=== PATIENT | female | born 1950 | race Caucasian/White ===

== ENCOUNTER 2019-04-09 06:10 | Day surgery (SDC) | payer MEDICARE, OTHER ==
[~2019-04-09] VITALS: Ht 152.4 cm; Wt 94.1 kg
[2019-04-09] VITALS (17 sets, daily range): BP systolic 87–125; BP diastolic 42–101; PULSE 79–94; RESP 13–23; Ht 152.4 cm; Wt 94.1 kg
[2019-04-09] MEDS ORDERED: CEFAZOLIN 2 GM/50 ML (PMX) 50 ML IVPB ONE (06:30)
[2019-04-09] MEDS ORDERED: BUPIVACAINE 0.5% (SDV) 30 ML INJ ONE (06:54)
[2019-04-09] MEDS ORDERED: POLYMYXIN/BACITRACIN 1L IRRIG ONE (06:54)
[2019-04-09] MEDS ORDERED: ASPI81TA52 PO (06:58)
[2019-04-09] MEDS ORDERED: ENAL10TA PO (06:58)
[2019-04-09] MEDS ORDERED: ATOR10TA65 PO (06:58)
[2019-04-09] MEDS ORDERED: ALBU18HF INHALATION (06:59)
[2019-04-09] MEDS ORDERED: DICL100G37 TOP (06:59)
[2019-04-09] MEDS ORDERED: CYCL1DRO BOTH EYES (07:00)
[2019-04-09] MEDS ORDERED: DEXL30CA2 PO (07:00)
--- NOTE | 2019-04-09 07:40 | PREAC ---
Date/Time of Note Date/Time of Note DATE: 04/09/19 TIME: 07:39 Anesthesia Eval and Record Evaluation Time Pre-Procedure Interview DATE: 04/09/19 TIME: 07:39 Age 69 Sex female NPO: 8 hrs Preoperative diagnosis left foot bunion and hammer toe Planned procedure surgical correction of bunion and hammer toe Past Medical History Past Medical History: Includes Cardio: HTN, Dyslipidemia Surgery & Anesthesia Issues No known issue Meds Anticoagulation: No Beta Emma within 24 hr: No Reason Beta Emma not given: Pt. not on B-Emma Reported Medications Dexlansoprazole (Dexilant) 30 Mg Adryan., 30 MG PO DAILY, #30 CAP 04/09/19 Cyclosporine (RESTASIS) 1 Each Droperette, 1 DROP BOTH EYES Q12, #1 BOX 04/09/19 Albuterol Sulfate* (Ventolin HFA*) 18 Gm Hfa.aer.ad, 2 PUFF INHALATION Q4H, #1 INHALER 04/09/19 Diclofenac Sodium* (Voltaren* Gel) 1% -100 Gm Gel, 2 GM TOP QID, #1 TUB 04/09/19 Enalapril Maleate* (Enalapril Maleate*) 10 Mg Tablet, 10 MG PO DAILY, TAB 04/09/19 Atorvastatin Calcium (Atorvastatin Calcium) 10 Mg Tablet, 10 MG PO QHS, #30 TAB 04/09/19 Aspirin (Low Dose Aspirin) 81 Mg Tablet., 81 MG PO DAILY, #30 TAB 04/09/19 Meds reviewed: Yes Allergies Coded Allergies: No Known Allergy (Unverified , 04/09/19) Allergies Reviewed: Yes Labs/Studies Labs Reviewed: Reviewed by anesthesiologist test: N/A Pre-procedure Exam Last vitals Vital Signs Date Temp Pulse Resp B/P (MAP) Pulse Ox O2 O2 Flow FiO2 Time Delivery Rate 04/09/19 97.9 79 18 100/63 95 Room Air 07:00 (75) Airway: Adequate mouth opening, Adequate thyromental dist Mallampati: Mallampati IV Teeth: Normal Lung: Normal Heart: Normal ASA Physical Status ASA physical status: 2 Emergency: None Pre-operative Attestations Prior to commencing anesthesia and surgery, the patient was re-evaluated, there was verification of: *The patient's identity *The results of appropriate recent lab work and preoperative vital signs *The above evaluation not changing prior to induction *Anesthetic plan, risk benefits, alternative and complications discussed with patient/family; questions answered; patient/family understands, accepts and wishes to proceed. JANICE UMANZOR DO Apr 09, 2019 07:40
[2019-04-09] MEDS ORDERED: MIDAZOLAM 1 MG/ML 2 ML INJ ONE (07:53)
[2019-04-09] MEDS ORDERED: LIDOCAINE 2% (SDV) 5 ML INJ ONE (07:53)
[2019-04-09] MEDS ORDERED: PROPOFOL 20 ML ONE (07:53)
[2019-04-09] MEDS ORDERED: FENTAnyl 50 MCG/ML VIAL ONE (07:53)
[2019-04-09] MEDS ORDERED: ROPIVACAINE 0.5 % 30 ML VIAL ONE (07:53)
[2019-04-09] MEDS ORDERED: KETAMINE (50 MG/ML) 10 ML VIAL ONE (07:57)
[2019-04-09] MEDS ORDERED: OXYCODONE/ACETAMINOPHEN (5/325) TAB PO PRN ×2 (08:00)
[2019-04-09] MEDS ORDERED: LABETALOL HCL 20MG INJ IV PRN (08:00)
[2019-04-09] MEDS ORDERED: HYDROmorphONE 1 MG/5 ML IV SYRINGE IV PRN ×3 (08:00)
[2019-04-09] MEDS ORDERED: hydrALAzine 20 MG INJ IV PRN (08:00)
[2019-04-09] MEDS ORDERED: DESFLURANE 15 MIN ONE (08:00)
--- NOTE | 2019-04-09 08:09 | HPN ---
Date/Time of Note Date/Time of Note DATE: 04/09/19 TIME: 08:09 Interval H&P Admission Note Pt. seen H&P reviewed: No system changes BRENT CEE DPM Apr 09, 2019 08:09
[2019-04-09] MEDS ORDERED: ONDANSETRON 4 MG INJ ONE (08:31)
[2019-04-09] MEDS ORDERED: CEFAZOLIN 1 GM INJ ONE (08:31)
[2019-04-09] MEDS ORDERED: DEXAMETHASONE 4 MG/ML 5 ML INJ ONE (08:31)
--- NOTE | 2019-04-09 10:18 | SIPON ---
Date/Time of Note Date/Time of Note DATE: 04/09/19 TIME: 10:16 Operative Report Preoperative Diagnosis Left foot severe bunion deformity Left third severe hammertoe deformity Morbid obesity Left foot pain Postoperative Diagnosis Left foot severe bunion deformity Left third severe hammertoe deformity Morbid obesity Left foot pain Operation/Procedure Performed Left foot bunionectomy Left third hammertoe deformity Surgeon see signature line butcher's assistant None Anesthesia: general Estimated blood loss: minimal Transfusion Required none Specimen Bone and joint capsule left foot Grafts/Implants none Complications none BRENT CEE DPM Apr 09, 2019 10:18
--- NOTE | 2019-04-09 10:20 | OPR ---
Date/Time of Note Date/Time of Note DATE: 04/09/19 TIME: 10:18 Operative Report Procedure Date: Apr 09, 2019 Preoperative Diagnosis Left foot severe bunion deformity Left third severe hammertoe deformity Morbid obesity Left foot pain Postoperative Diagnosis Left foot severe bunion deformity Left third severe hammertoe deformity Morbid obesity Left foot pain Operation/Procedure Performed Left foot bunionectomy Left third hammertoe correction Left third metatarsal osteotomy Surgeon see signature line It Security Analyst None Anesthesia Type: general Estimated Blood Loss: minimal Transfusion none Specimen Bone and joint capsule left foot Grafts/Implants none Tubes/Drains None Complications none Pt Condition Post Procedure: stable Disposition: PACU Indications This is a pleasant 69-year-old female patient has been suffering with left foot forefoot pain for many years, exacerbated for the past few months especially with shoes and with activities. Patient complains of hallux abductovalgus deformity and painful hammertoe on the left third toe. Patient has failed to get pain relief with shoe modification and activity modification. She seeks surgical management. Risks and complications of this type surgery was discussed with patient in great detail. The risks and complications discussed, include but are not limited to, postoperative infection, postoperative pain, postoperative disability, chronic disability and pain, failure of surgery to correct the problem, need for use of internal and external fixation devices, and possible hardware failure, need for hardware removal, need for additional surgical procedures, deep venous thrombosis, limb loss, and loss of life. The patient acknowledges understanding of the discussion and agrees to the procedure. An informed consent was obtained, signed and placed in the chart. No guarantee or warranty was given or implied as to the outcome of the procedure either and verbal or written form. Procedure Description The patient was seen and examined in the preoperative area. Operative any was given to patient asked questions and all questions were answered. An informed consent was obtained, signed and placed in the chart. The patient was then taken to the operating room and was placed on the operating table in the supine position. Patient was placed under general anesthesia by the anesthesiologist. A pneumatic ankle was placed around the left ankle. The left foot was then scrubbed, prepped and draped in the usual aseptic manner. An Esmarch bandage was utilized to exsanguinate the left foot and the tourniquet was inflated to 250 mmHg pressure. Attention was directed to the first metatarsal phalangeal joint. Procedure: Bunionectomy left foot Skin marker was used to parth the incision over the dorsal medial aspect of the first MPJ medial peril to the extensor hallucis longus tendon. A #10 blade was used to make this incision. Incision was deepened through the subcutaneous layer with care being taken to identify and protect vital rasp structures. Bleeders were cauterized as necessary. Dissection continued deep to the joint capsule. [place] capsulotomy was performed and the first metatarsal phalangeal joint was dissected and exposed. Large bony prominence was found on the dorsal medial aspect of the first met are phalangeal joint. A power saw was used to cut the medial shelf of bone. The patient Brown type osteotomy was made at the head of the first metatarsal with a long arm dorsally in a short arm plantarly. A fragment was translated laterally to the desired position and temporarily fixated using a 0.045 K wire. A [place] 3.0 cannulated headless screw was inserted for permanent fixation. Remaining medial shelf of bone was cut using a power saw. Rasp was used for smoothing out all rough edges. Procedure: Third toe hammertoe correction Attention was next directed to the dorsal aspect of the third toe on the left foot. A contracted toes present and the contracture was found to be both at the metatarsal phalangeal joint and proximal interphalangeal joint. A #15 blade was used to make a 2 cm linear incision over the dorsal aspect of the toe. Dissection was carefully deepened using sharp and blunt dissection. Vital neurovascular structures were identified and protected. Bleeders were cauterized as necessary. The extensor tendon was identified and transected at the level of the proximal interphalangeal joint and dissected away from the joint. Joint capsule was then incised and the medial lateral collateral ligaments were released and the head of the proximal phalanx and the base of the medial phalanx was exposed. A power saw was used to cut the head of the proximal phalanx and a rongeur was used to denude the cartilage of the base of the middle phalanx. Next, 0.062 K wire was inserted retrograde for fixation. The extensor tendon was reapproximated using 4-0 Vicryl suture. Procedure: Third metatarsal head osteotomy Attention was then directed to the metatarsophalangeal joint where continued contracture of the third toe was found. I proceeded to dissect out the dorsal aspect of the third metatarsal phalangeal joint with care being taken to identify and protect bilateral asked structures. A linear capsulotomy was formed over the dorsal MPJ joint capsule and the MPJ was exposed. The head of the third metatarsal was identified. A small saw was inserted and the 45 degree bone cut was made at the neck of the metatarsal parallel to the ground and bicortical. The head of the metatarsal was then shifted proximally to the desired position and a snap-on screw was inserted for fixation. Excess bone dorsally was denuded using a rongeur. Hand rasp was used to smooth out the roug h bone edges. Copious amounts of sterile normal saline was used to irrigate the wound. The toe was noted to drop down into its anatomical space with the completion of the osteotomy. The joint capsule was closed using 3-0 Vicryl suture. All incisions were irrigated with copious muscle sterile normal saline. The subcutaneous layers were closed using 4-0 Vicryl suture. Skin incisions were then closed using 5-0 Monocryl in simple suture technique. Steri-Strips were applied. Postoperative injection of 0.5% Marcaine plain was given. Sterile dressing was applied to the left foot. The pneumatic ankle tourniquet was deflated at this time and prompt hyperemic response was noted to digits of the left foot. Postoperative orders were written. Patient is to remain nonweightbearing on the left foot using crutches and or a walker plus postop shoe. The patient will be sent back home after postoperative monitoring and she can follow-up in my office in 1 week. Prescription was submitted to her pharmacy electronically.. BRENT CEE DPM Apr 09, 2019 10:20
--- NOTE | 2019-04-09 17:38 | PAC ---
Date/Time of Note Date/Time of Note DATE: 04/09/19 TIME: 17:38 Post-Anesthesia Notes Post-Anesthesia Note Last documented vital signs Vital Signs Date Temp Pulse Resp B/P (MAP) Pulse Ox O2 O2 Flow FiO2 Time Delivery Rate 04/09/19 82 15 105/54 96 Room Air 1100 (71) 04/09/19 3.0 10:39 04/09/19 99.5 10:20 Activity: WNL Respiratory function: WNL Cardiovascular function: WNL Mental status: Baseline Pain reasonably controlled: Yes Hydration appropriate: Yes Nausea/Vomiting absent: Yes JANICE UMANZOR DO Apr 09, 2019 17:38
== END 2019-04-09 13:20 | disposition home or self-care (01) ==
LOC: SDS 06:10
PROVIDERS: ATTEND Podiatrist Foot & Ankle Surgery
DX: M21.612 Bunion of left foot (principal); M20.42 Other hammer toe(s) (acquired), left foot; E66.01 Morbid (severe) obesity due to excess calories; Z68.41 Body mass index [BMI] 40.0-44.9, adult; Z79.82 Long term (current) use of aspirin
CPT/HCPCS: 28285; 28296; 28308; 73630; 88304; 88311; J0690; J1100; J1170; J2250; J2405; J2795; J3010; L3260